=== PATIENT | female | born 1970 | race Caucasian/White ===

== ENCOUNTER 2017-07-04 12:57 | Emergency (ER) | payer OTHER ==
[~2017-07-04] VITALS: Ht 167.6 cm; Wt 90.7 kg
[2017-07-04] MEDS ORDERED: AVAPRO300 MG PO (13:06)
[2017-07-04] MEDS ORDERED: NESINA25 MG PO (13:07)
[2017-07-04] MEDS ORDERED: HYDROCHLOROTHIA25 MG PO (13:07)
[2017-07-04] MEDS ORDERED: ALBUTEROL0.63 MG/3 IH (22:11)
[2017-07-04] MEDS ORDERED: AZITHROMYCIN250 MG PO (22:11)
[2017-07-04] MEDS ORDERED: PREDNISONE20 MG PO (22:11)
[2017-07-04] MEDS ORDERED: PROTONIX40 MG PO (22:11)
== END 2017-07-04 22:42 | disposition home or self-care (01) ==
LOC: ER 12:57
DX: J45.901 Unspecified asthma with (acute) exacerbation (principal)

== ENCOUNTER 2017-08-24 21:49 | Inpatient (IN) | payer OTHER ==
[~2017-08-24] VITALS: Ht 167.6 cm; Wt 93.4 kg
[~2017-08-24 21:49] MED LIST: ALBUTEROL0.63 MG/3 IH; AVAPRO300 MG PO; AZITHROMYCIN250 MG PO; HYDROCHLOROTHIA25 MG PO; NESINA25 MG PO; PREDNISONE20 MG PO; PROTONIX40 MG PO
[2017-08-28] MEDS ORDERED: CIPRO500 MG PO (09:43)
[2017-08-28] MEDS ORDERED: ACIDOPHILUS1 EAC3 PO (09:44)
== END 2017-08-28 14:59 | disposition home or self-care (01) | DRG 872 ==
LOC: ER 21:49 → SEC-K 08-25 09:05 → SURG 08-25 09:05
PROC: BW21Y0Z Computerized Tomography (CT Scan) of Abdomen and Pelvis using Other Contrast, Unenhanced and Enhanced (ICD-10-PCS; principal; 2017-08-25)
DX: A41.9 Sepsis, unspecified organism (principal); N10 Acute pyelonephritis; B37.49 Other urogenital candidiasis; I10 Essential (primary) hypertension; K21.9 Gastro-esophageal reflux disease without esophagitis; E11.65 Type 2 diabetes mellitus with hyperglycemia; G43.809 Other migraine, not intractable, without status migrainosus; J45.998 Other asthma

== ENCOUNTER 2017-12-06 11:30 | Emergency (ER) | payer OTHER ==
[~2017-12-06] VITALS: Ht 167.6 cm; Wt 97.1 kg
[~2017-12-06 11:30] MED LIST changes: +ACIDOPHILUS1 EAC3 PO; +CIPRO500 MG PO
[2017-12-06] MEDS ORDERED: PROGESTERONE100 MG (11:41)
[2017-12-06] MEDS ORDERED: AVAPRO300 MG (11:42)
[2017-12-06] MEDS ORDERED: PEPCID40 MG PO (15:35)
[2017-12-06] MEDS ORDERED: INTESTINEX680 M1 PO (15:35)
[2017-12-06] MEDS ORDERED: KETO10TA2 PO (15:35)
== END 2017-12-06 17:24 | disposition home or self-care (01) ==
LOC: ER 11:30
DX: N20.0 Calculus of kidney (principal); R10.32 Left lower quadrant pain